=== PATIENT | male | born 1980 | race Caucasian/White ===

== ENCOUNTER 2016-09-29 21:35 | Emergency (ER) | payer OTHER ==
[~2016-09-29] VITALS: Ht 172.7 cm; Wt 63.4 kg
[2016-09-30] MEDS ORDERED: PERCOCET 5/31 TABLET PO (01:10)
[2016-09-30 01:52] VITALS: BP 136/95
== END 2016-09-30 01:57 ==
LOC: EME → EDBD 21:35 → EME 09-30 01:57
DX: S52.122A Displaced fracture of head of left radius, initial encounter for closed fracture (principal); S53.105A Unspecified dislocation of left ulnohumeral joint, initial encounter; M25.512 Pain in left shoulder; W19.XXXA Unspecified fall, initial encounter; Y93.67 Activity, basketball; Y92.149 Unspecified place in prison as the place of occurrence of the external cause; F17.200 Nicotine dependence, unspecified, uncomplicated
CPT/HCPCS: 73070; 73080; 99281; 99285; J3010

== ENCOUNTER 2016-10-16 07:09 | Day surgery (SDC) | payer OTHER ==
[~2016-10-16] VITALS: Ht 172.7 cm; Wt 54.4 kg
[~2016-10-16 07:09] MED LIST: ADVIL200 MG PO; MOTRIN800 MG PO; PERCOCET 5/31 TABLET PO
[2016-10-16 07:39] VITALS: BP 135/86
[2016-10-16 11:33] VITALS: BP 146/95
[2016-10-16 12:41] VITALS: BP 137/88
== END 2016-10-16 12:41 ==
LOC: SDC
DX: S52.122A Displaced fracture of head of left radius, initial encounter for closed fracture (principal); W03.XXXA Other fall on same level due to collision with another person, initial encounter; Y93.67 Activity, basketball; Y92.838 Other recreation area as the place of occurrence of the external cause; Y99.8 Other external cause status; J45.909 Unspecified asthma, uncomplicated
CPT/HCPCS: 73070; 76000; J0131; J0690; J1100; J1170; J1885; J2250; J2405; J3010; J7050; S0020